=== PATIENT | male | born 1970 | race American Indian/Alaskan Native ===

== ENCOUNTER 2020-01-02 15:30 | Emergency (ER) | payer MEDICAID ==
[2020-01-02 15:35] VITALS: BP 128/77; PULSE 107
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
[2020-01-02 16:35] LABS: ANION GAP 18.3 mEq/L (7-13); CHLORIDE,CL 104 mmol/L (98-107); SODIUM,NA 142 mmol/L (136-145)
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
== END 2020-01-02 16:40 | disposition left against medical advice (07) ==
LOC: DL.ED 15:30
DX: F10.129 Alcohol abuse with intoxication, unspecified (principal); F17.210 Nicotine dependence, cigarettes, uncomplicated; Z79.899 Other long term (current) drug therapy
CPT/HCPCS: 36415; 71100-LT; 73560-LT; 73590-LT; 80053; 80305-QW; 80307; 81001; 83735; 84100; 85025; 99284-25

== ENCOUNTER → 2025-01-08 | Day surgery (SDC) | payer MEDICAID ==
[~2025-01-08] MED LIST: Lactated Ringers 1,000 ML IV SCH
[2025-01-08 07:06] VITALS: BP 108/82; PULSE 72
== END ==
LOC: DL.ENDO 06:23
PROVIDERS: ATTEND Internal Medicine Gastroenterology
DX: J45.909 Unspecified asthma, uncomplicated (principal); Z53.8 Procedure and treatment not carried out for other reasons
CPT/HCPCS: A9270-GY

== ENCOUNTER 2025-01-11 07:17 | Day surgery (SDC) | payer MEDICAID ==
[2025-01-11] MEDS ORDERED: Lactated Ringers 1,000 ML IV ONE (07:18)
[2025-01-11] MEDS ORDERED: Propofol 200 MG/20 ML SDV IV ONE (07:18)
[2025-01-11] MEDS: Lactated Ringers 1,000 ML IV SCH (07:48)
[2025-01-11 10:20] VITALS: BP 111/74; PULSE 62
== END 2025-01-11 10:31 | disposition home or self-care (01) ==
LOC: DL.ENDO 07:17
PROVIDERS: ATTEND Internal Medicine Gastroenterology
DX: K22.70 Barrett's esophagus without dysplasia (principal); K29.50 Unspecified chronic gastritis without bleeding; B96.81 Helicobacter pylori [H. pylori] as the cause of diseases classified elsewhere; K25.9 Gastric ulcer, unspecified as acute or chronic, without hemorrhage or perforation; I10 Essential (primary) hypertension; Z88.8 Allergy status to other drugs, medicaments and biological substances; Z79.82 Long term (current) use of aspirin; Z91.030 Bee allergy status
CPT/HCPCS: J2003; J2704; J7120

== ENCOUNTER 2025-01-14 05:40 | Day surgery (SDC) | payer MEDICAID ==
[2025-01-14] MEDS ORDERED: Propofol 200 MG/20 ML SDV IV ONE (05:41)
[2025-01-14] MEDS ORDERED: Lactated Ringers 1,000 ML IV ONE (05:41)
[2025-01-14] MEDS ORDERED: Propofol 200 MG/20 ML SDV ONE (06:15)
[2025-01-14] MEDS: Lactated Ringers 1,000 ML IV SCH (06:25)
[2025-01-14 08:07] VITALS: BP 104/78; PULSE 84
== END 2025-01-14 08:15 | disposition home or self-care (01) ==
LOC: DL.ENDO 05:40
PROVIDERS: ATTEND Internal Medicine Gastroenterology
DX: Z12.11 Encounter for screening for malignant neoplasm of colon (principal); K64.8 Other hemorrhoids; I10 Essential (primary) hypertension; E78.5 Hyperlipidemia, unspecified; Z91.030 Bee allergy status; Z88.8 Allergy status to other drugs, medicaments and biological substances; Z79.899 Other long term (current) drug therapy
CPT/HCPCS: 45378; J2704; J7120; S5010